=== PATIENT | female | born 1960 ===

== ENCOUNTER 2018-01-16 13:17 | Outpatient (CLI) | payer OTHER | END 2018-01-16 13:23 | disposition home or self-care (01) | LOC: MAMO-SONO 13:17 | DX: Z12.31 Encounter for screening mammogram for malignant neoplasm of breast (principal); Z87.898 Personal history of other specified conditions; Z76.0 Encounter for issue of repeat prescription; N39.0 Urinary tract infection, site not specified; I10 Essential (primary) hypertension; E78.4 Other hyperlipidemia ==

== ENCOUNTER 2018-03-16 07:33 | Outpatient (CLI) | payer OTHER | END 2018-03-16 07:35 | disposition home or self-care (01) | LOC: RAD 07:33 | DX: M54.5 Low back pain (principal); M25.551 Pain in right hip; M25.552 Pain in left hip ==